=== PATIENT | male | born 1975 | race Caucasian/White ===

== ENCOUNTER 2022-08-19 20:07 | Emergency (ER) | payer MEDICAID ==
[~2022-08-19] VITALS: Ht 165.1 cm; Wt 74.8 kg
[2022-08-19 21:30] VITALS: BP_SYST 131; PULSE 79; RESP 18; TEMP 98.1; O2SAT 98
[2022-08-19] MEDS ORDERED: CIPR7.5D OT (22:28)
[2022-08-19] MEDS ORDERED: IBUP-1969 PO (22:28)
[2022-08-19 22:33] VITALS: BP_SYST 131; PULSE 79; RESP 16; TEMP 98.1; O2SAT 98
== END 2022-08-19 22:33 | disposition home or self-care (01) ==
LOC: SED 20:07
DX: H60.92 Unspecified otitis externa, left ear (principal); H92.02 Otalgia, left ear; Z79.899 Other long term (current) drug therapy
CPT/HCPCS: 99283